=== PATIENT | female | born 1990 | race Caucasian/White ===

== ENCOUNTER 2016-04-07 14:43 | Emergency (ER) | payer SELFPAY ==
[~2016-04-07] VITALS: Ht 167.6 cm; Wt 52.2 kg
[2016-04-07 14:46] VITALS: BP 114/67
== END 2016-04-07 15:16 | disposition home or self-care (01) ==
LOC: ER 14:47
DX: S50.861A Insect bite (nonvenomous) of right forearm, initial encounter (principal); W57.XXXA Bitten or stung by nonvenomous insect and other nonvenomous arthropods, initial encounter; Y93.89 Activity, other specified; Y92.89 Other specified places as the place of occurrence of the external cause; Y99.8 Other external cause status
CPT/HCPCS: 99281; A4606; Z7610; Z7502